=== PATIENT | female | born 2000 | race Caucasian/White ===

== ENCOUNTER → 2025-01-06 | Day surgery (SDC) | payer OTHER ==
[~2025-01-06] VITALS: Ht 162.6 cm; Wt 102.9 kg
[~2025-01-06] MED LIST: INCA0.35 PO; KETOROLAC 30 MG/ML 1 ML VIAL As Ordered ONE; LIDOCAINE 2% 100 MG/5 ML SDV (FOR ANES.) As Ordered ONE; MELO15TA28 PO; MIDAZOLAM INJ 2 MG/2 ML VIAL As Ordered ONE; ONDANSETRON 4MG/2ML VIAL As Ordered ONE; ONDANSETRON 4MG/2ML VIAL IV PRN; dexAMETHasone 4 MG/ML 1 ML VIAL As Ordered ONE
[2025-01-06] MEDS: ACETAMINOPHEN 500 MG TAB PO ONE (13:02)
[2025-01-06] MEDS: SCOPOLAMINE 1MG TRANSDERMAL PATCH TOP ONE (13:03)
[2025-01-06] MEDS: LIDOCAINE W/EPINEPHrine 1% 20 ML VIAL As Ordered ONE (14:47)
[2025-01-06 15:26] VITALS: TEMP 97
[2025-01-06] MEDS: HYDROMORPHONE HCL 0.5 MG/0.5 ML SYRINGE IV PRN (15:26)
[2025-01-06 15:50] VITALS: BP 97/50; O2SAT 98
== END | disposition home or self-care (01) ==
LOC: M SDC 12:10
PROVIDERS: ATTEND General Practice
DX: N87.1 Moderate cervical dysplasia (principal); Z88.3 Allergy status to other anti-infective agents; Z79.3 Long term (current) use of hormonal contraceptives; F17.290 Nicotine dependence, other tobacco product, uncomplicated
CPT/HCPCS: 36415; 57461; 81025; 86850; 86900; 86901; 88305; 88307; J1100; J1171; J1885; J2250; J2405; J3010